=== PATIENT | female | born 1975 | race Caucasian/White ===

== ENCOUNTER 2016-09-13 05:36 | Inpatient (IN) | payer BC, OTHER ==
[~2016-09-13] VITALS: Ht 167.6 cm; Wt 115.5 kg
[2016-09-13] VITALS (10 sets, daily range): BP systolic 125–140; BP diastolic 68–87; PULSE 65–85; RESP 16–20; TEMP 97.5–98; O2SAT 94–100
[~2016-09-13 05:36] MED LIST: AMOX875T2 PO; ASCO500T9 PO; DOCO100C3 PO; ESCI10TA PO; LEVO150T68 PO; LORA10TA62 PO; VENL150T7 PO; [UNRECOGNIZED DRUG - CODE] PO
[2016-09-13] MEDS ORDERED: LR 1,000 ML IV PRN (05:42)
[2016-09-13] MEDS ORDERED: FAMOTIDINE 20mg IVPB 50 ML IV ONE (05:45)
[2016-09-13] MEDS ORDERED: NOZIN NASAL SWAB NS PRN (05:45)
[2016-09-13] MEDS ORDERED: LIDOCAINE 1% (10mg/ml) 2ml SDV ID PRN (05:45)
[2016-09-13] MEDS ORDERED: CITRIC ACID/SODIUM CITRATE 30 ML PO ONE (05:45)
[2016-09-13] MEDS ORDERED: CEFAZOLIN 2 GM in D5W 50ml 2 GM in D5W 50 ML IV ONE ×2 (06:00)
[2016-09-13] MEDS ORDERED: CEFAZOLIN 1 G in NORMAL SALINE 100 ML IV ONE (06:00)
--- NOTE | 2016-09-13 06:42 | ANESOB ---
Epidural/ Date/Time DATE: 09/13/16 TIME: 06:40 Preop Diagnosis Procedure: Plan: Spinal Height: 5 ' 6.00 " Weight: 115.450 kg BMI: kg/m2 Blood Pressure: 125/69 Heart Rate: 85 Respiratory Rate: 16 P:2 Medications & Allergies Inpatient Medications Current Medications Medications (Trade) Dose Ordered Sig/Keely Start Time Stop Time Status Last Admin Dose Admin Lactated Ringer's (Lactated Ringers) 1,000 ml @ 150 mls/hr [id number] PRN 09/13/16 05:42 Lidocaine HCl (Xylocaine 1%) 0.2 mg PRN PRN 09/13/16 05:45 Multi-Ingredient Antiseptic (Nozin Nasal Swab) 3 each PREOP PRN 09/13/16 05:45 Amoxicillin (Amoxicillin) 875 Mg Tablet, 1 TAB PO BID, (Reported) Last Taken: on 09/12/161999 Ascorbic Acid (Vitamin C) 500 Mg Tablet, 1 TAB PO DAILY, (Reported) Last Taken: on 09/12/16899 Docosahexanoic Acid (Dha) 100 Mg Capsule, 1 CAP PO DAILY, (Reported) Last Taken: on 09/12/16 09 Escitalopram Oxalate (Lexapro) 10 Mg Tablet, 1 TAB PO DAILY, (Reported) Last Taken: on 09/12/16899 Levothyroxine Sodium (Synthroid) 150 Mcg Tablet , 150 MCG PO DAILY, (Reported) Last Taken: on 09/12/16 09 Loratadine (Claritin) 10 Mg Tablet, 1 TAB PO DAILY, (Reported) Last Taken: on 09/12/16899 Vit/Fe Fumarate/Fa ( 1 Plus 1 Tablet) 1 Udtab Tablet, 1 UDTAB PO, (Reported) Last Taken: on 09/12/16 09 Venlafaxine Hcl (Venlafaxine Hcl Er) 150 Mg Tab.er.24, 150 MG PO DAILY, (Reported) Last Taken: on 09/12/16 0900 Coded Allergies: morphine (Verified Adverse Reaction, Severe, MIGRAIN, 09/13/16) Medical/Surgical History Anesthesia PMH: Reports: Headaches (Current migrain), Obesity, , Thyroid Disease, Denies: *Angina, *Diabetes, *Hypertension, *OK, Anesthesia Reactions, Arthritis, Asthma, Bld Transfusion Reaction, CHF, COPD, CVA/Stroke/ TIA, Cancer, Clotting Problems, Glaucoma, Malignant Hyperthermia, Renal Disease , Seizures Smoking Status: Never smoker Does patient use chewing tobac: No Second Hand Exposure: No Substance Use Type: does not use Alcohol Intake: none Anesthesia Adverse Reactions: FOUND none Family Hx of Anesthesia Advers: none Hx of Motion Sickness: No Pertinent Findings EKG Rhythm: Sinus Rhythm Physical Exam Respiratory: Lungs clear Cardiovascular: Regular rate, rhythm Airway Assessment Mallampati Score: II TMD: 3 Fingerbreadths Neck Extension: Good Overall Assessment: May Be Diff Intubation ASA: 2 Discussion Discussed risks/options/alternatives of anesthesia. Patient consents. Nursing pain assessment noted. Present for Discussion: Present: Family Member Attestation Statement Prior to the delivery of any anesthetic medication, I examined the patient, developed the plan, obtained the patient's consent and discussed the risk and benefits of the procedure with the patient/guardian. If the note happens to be signed after anesthesia start time, it is only due to providing efficient care of the patient and documenting at a time when the computer is available. KENDRICK ALAMO COMMUNICATIONS MANAGER Sep 13, 2016 06:42
[2016-09-13 07:01] LABS: BASOPHILS % (AUTO) 0.1 % (0-2); EOSINOPHILS # (AUTO) 0.1 T/MM3 (0-0.5); EOSINOPHILS % (AUTO) 0.5 % (0-4); HCT - HEMATOCRIT 38.1 % (36-46); HGB - HEMOGLOBIN 12.9 GM/DL (12-16); IMMATURE GRANULOCYTE # (AUTO) 0.03 T/MM3 (0.00-0.03); IMMATURE GRANULOCYTE % (AUTO) 0.3 % (0.0-0.5); LYMPHOCYTES # (AUTO) 1.8 T/MM3 (1-4.8); LYMPHOCYTES % (AUTO) 18.3 % (23-45); MEAN CORPUSCULAR HGB CONC(MCHC 33.9 GM/DL (31-37); MEAN CORPUSCULAR VOLUME 82.6 UM3 (80-100); MEAN PLATELET VOLUME 10.7 UM3 (9.4-12.4); MONOCYTES # (AUTO) 0.5 T/MM3 (0-0.8); NEUTROPHILS #(AUTO)-ABSOLUTE 7.6 T/MM3 (1.8-7.7); NEUTROPHILS % (AUTO) 75.8 % (33-66); RED BLOOD COUNT 4.61 M/MM3 (4.00-5.20); WBC - WHITE BLOOD COUNT 10.1 T/MM3 (4.5-11.0)
[2016-09-13] MEDS ORDERED: PHENYLEPHRINE 10mg/ml INJECTION ONE (07:01)
[2016-09-13] MEDS ORDERED: SALINE FLUSH 10ml SYRINGE ONE ×2 (07:02→07:48)
[2016-09-13] MEDS ORDERED: FENTANYL 100mcg/2ml INJECTION ONE (07:04)
[2016-09-13] MEDS ORDERED: NOZIN NASAL SWAB NS ONE (07:45)
[2016-09-13] MEDS ORDERED: NALBUPHINE 10mg/ml INJECTION IV PRN (08:00)
[2016-09-13] MEDS ORDERED: DiphenhydrAMINE 50 MG/ML INJECTION IV PRN (08:00)
[2016-09-13] MEDS ORDERED: METOCLOPRAMIDE 10mg/2ml INJECTION IV PRN (08:00)
[2016-09-13] MEDS ORDERED: NALOXONE 0.4mg/ml INJECTION IV PRN (08:00)
[2016-09-13] MEDS ORDERED: ONDANSETRON 4mg/2ml INJECTION IV PRN (08:00)
[2016-09-13] MEDS ORDERED: OXYTOCIN 30 UNIT in D5LR 500 ML IV SCH (08:27)
[2016-09-13] MEDS ORDERED: D5LR 1,000 ML IV SCH (08:27)
[2016-09-13] MEDS ORDERED: CALCIUM CARBONATE 500mg Chewable TAB PO PRN (08:30)
[2016-09-13] MEDS ORDERED: DiphenhydrAMINE 25 MG CAPSULE PO PRN (08:30)
[2016-09-13] MEDS ORDERED: MILK OF MAGNESIA 30 ML SUSP PO PRN (08:30)
[2016-09-13] MEDS ORDERED: ACETAMINOPHEN 500 MG TABLET PO PRN (08:30)
[2016-09-13] MEDS ORDERED: HYDROCORTISONE 2.5% CREAM 30 GM RECTALLY PRN (08:30)
[2016-09-13] MEDS: HYDROCODONE/APAP 5 mg/325 mg TABLET PO PRN ×2 (10:41→15:17)
[2016-09-13] MEDS: IBUPROFEN 800 MG TABLET PO PRN (10:42)
--- NOTE | 2016-09-13 13:18 | OPNOTEF ---
DATE OF OPERATION 09/13/2016 PREOPERATIVE DIAGNOSES 1. Third trimester with a previous myomectomy. 2. Undesired fertility. POSTOPERATIVE DIAGNOSES 1. Third trimester with a previous myomectomy, delivered. 2. Undesired fertility. PROCEDURE Primary low transverse section and bilateral tubal ligation. SURGEON Tania Haynes MD MOTEL FRONT DESK CLERK Kimberly Urias MD ANESTHESIA Spinal (Zak Montenegro, EXAMINER RATING CLERK) EBL 700 ml DESCRIPTION OF PROCEDURE Ms. Hickman was brought to the OR and given regional analgesia to good effect. She was then placed on the OR table in a comfortable supine position with left lateral displacement. A Jones catheter was placed to dependent drain. The abdomen was prepped and draped in the usual sterile fashion. A Pfannenstiel skin incision was made with a sharp knife. This was carried down to fascia. Fascia was incised transversely. Fascia was then tented up. This was bluntly and sharply dissected free of rectus muscles. Rectus muscles were bluntly divided. The peritoneum was tented up and sharply entered. This was then extended vertically and the bladder blade inserted. The bladder was noted to be well below our area of operation. A low transverse uterine incision was made with a sharp knife. There was clear amniotic fluid. Baby was delivered in a vertex presentation. There was a loose nuchal cord x 2 that was reduced. Baby was bulb suctioned on the abdomen, then cord was doubly clamped and cut. Baby was given to and her team for care. This is a liveborn female with Apgars of 7/7/8 and weighed 5 pounds, 0.5 ounces. The placenta was then expressed, intact. It had a normal configuration and normal-appearing three-vessel cord. The uterine cavity was swept clear of membranes and the uterus was exteriorized. We then reapproximated the myometrium with a running locking O Monocryl. There was an area of oozing in the midline, so we reinforced this with a running locking O Monocryl just for a section of about 3 cm in midline. At this point hemostasis was under good control and we turned our attention to the tubal ligation. The right fallopian tube was visualized to its fimbria. It was grasped at its midpoint. A large area then was ligated with a simple ligature of 2-0 chromic. The mesosalpinx was then pierced with a hemostat. Two simple ligatures of 2-0 silk were then brought through this and ligated on either side of the prior suture. The isolated section of tube was then excised. The stumps were very carefully observed for hemostasis and this was found to be under good control. We repeated the procedure on the left fallopian tube in the exact same fashion. Again, hemostasis was under good control. We reinspected our myometrial incision and it remained hemostatic. We then removed gross blood clots from the abdomen and returned the uterus, tubes and ovaries to the abdomen. We reinspected our incisions and all was hemostatic and we continued our closure. The peritoneum was then reapproximated with a running nonlocking 2-0 Vicryl. Fascia was reapproximated with a running nonlocking 0 Vicryl. Kristin's was reapproximated with a running nonlocking 2-0 chromic. Then skin edges were reapproximated with subcuticular style 3-0 undyed Vicryl. The wound was dressed with Steri-Strips and sterile dressing. Counts were correct postoperatively x 2. The urine remained clear and free flowing throughout the procedure and Ms. iHckman was then was then transferred to recovery in stable condition. NISHI
[2016-09-13] MEDS: VENLAFAXINE 75 MG TABLET PO SCH (14:00)
[2016-09-13] MEDS ORDERED: HYDROMORPHONE 2mg/ml INJECTION IV ONE (14:00)
[2016-09-13] MEDS: ESCITALOPRAM 10 MG TABLET PO SCH (14:00)
--- NOTE | 2016-09-13 14:25 | NUR ---
Pain management: PT unable to get relief from oral pain medication at this time. Dr. Haynes notified, one time dialudid 2mg ivp order given. IV dilaudid given. binder applied and lights turned off. pt trying to sleep; said that it has taken the edge off.
--- NOTE | 2016-09-13 15:39 | ANESPO ---
Post-Op Note Date 09/13/16 Time: 15:38 Status Pt Participated in Evaluation: Pt participated in person Vital Signs Date Time Temp Pulse Resp B/P Pulse Ox O2 Delivery O2 Flow Rate FiO2 09/13/16 15:15 20 94 09/13/16 12:49 98.0 67 140/68 Room Air Respiratory Function: Airway patent Cardiovascular Function: Regular pulse Telemetry Pattern: SR Mental Status: Alert/oriented Pain Level Intensity: 7 Hydration: IV infusing Complications during Recovery None apparent Follow-Up Instructions Instructions Per Surgeon KENDRICK ALAMO CRNA Sep 13, 2016 15:38
[2016-09-13 15:57] LABS: HCT - HEMATOCRIT 36.4 % (36-46); HGB - HEMOGLOBIN 12.3 GM/DL (12-16); MEAN CORPUSCULAR HGB CONC(MCHC 33.8 GM/DL (31-37); MEAN CORPUSCULAR VOLUME 82.7 UM3 (80-100); MEAN PLATELET VOLUME 10.2 UM3 (9.4-12.4); RED BLOOD COUNT 4.4 M/MM3 (4.00-5.20); WBC - WHITE BLOOD COUNT 11.4 T/MM3 (4.5-11.0)
--- NOTE | 2016-09-13 16:25 | NUR ---
UNCONTROLLED PAIN: Pt rating incision pain 4/10. Pt states she experiencing constant pressure in her incision area. RN updates Dr Urias on pt's pain. Dr Urias orders PO [place] 10 x1 q 6hrs.
[2016-09-13] MEDS ORDERED: HYDROMORPHONE PCA 30 MG/30 ML VIAL IV PRN (17:00)
--- NOTE | 2016-09-13 17:00 | PNPDOC ---
Progress Note Date 09/13/16 Pt reports pain not well controlled. Also has a cold sore coming up. Usually takes acyclovir. Baby in SCN. AVSS Stable Will add TIMBER CUTTER pain control overnight, po acyclovir. EVELYN BRANCH MD Sep 13, 2016 17:00
[2016-09-13] MEDS: LR 1,000 ML IV SCH (17:25)
[2016-09-13] MEDS: SIMETHICONE 80 MG CHEWABLE TABLET PO CHEW SCH ×2 (20:00→22:05)
[2016-09-14] VITALS (11 sets, daily range): BP systolic 130–143; BP diastolic 68–77; PULSE 64–75; RESP 12–18; TEMP 96.1–98.6; O2SAT 94–96
[2016-09-14] MEDS: ACYCLOVIR 200 MG CAPSULE PO SCH ×4 (00:38→20:39)
[2016-09-14] MEDS: VENLAFAXINE 75 MG TABLET PO SCH ×4 (00:41→16:59)
--- NOTE | 2016-09-14 02:07 | NUR ---
SHIFT SUMMARY: VSS, pt's pain uncontrolled with PO Motrin and [place] 5. New order placed for Dilaudid SIX SIGMA BLACK TRAINER, pt's pain controlled. Fundus firm at 1 below umbilicus, scant lochia noted. Incision dressing dry and intact. Urinary rock cath to dependent drain, urine output adequate. IV in pt's right hand infusing LR 100ml/hr and Dilaudid SIX SIGMA BLACK TRAINER, no complications. Thigh high SCD's pumping bilaterally. Abdm binder on for support. RN provided pericare x2. Pt consuming general diet w/o complications. PT up to w/c x1 to visit baby in SCN. Pt stands at bedside x1. Pt pumping breast, no colostrum collected on this shift. Pt states concerns multiple times that she is not collecting any colostrum. RN gives encouragement and instructs pt to continue to pump every 3hours. Shukri has left for the evening but very supportive when present. Pt currently sleeping.
--- NOTE | 2016-09-14 02:17 | NUR ---
Chart Check 24 hour chart check completed
--- NOTE | 2016-09-14 02:50 | NUR ---
REPORT FROM Fabian FIGUEROA RN BEDSIDE REPORT. PATIENT ORIENT X3. FALLS ASLEEP TALKING WITH HER. TEARY AFTER FUNDAL CHECK. ABDOMINAL PAIN @ LEVEL 5. REMINDED TO PUSH EMERGENCY MEDICAL DISPATCHER. EMERGENCY MEDICAL DISPATCHER SHIFT TOTALS CHECKED AND CLEARED WITH Fabian FIGUEROA RN. IV SITE WITHOUT S/S OF COMPLICATION. SCD'S ON. FUNDUS FIRM @ -1. SMALL AMOUNT RUBRA LOCHIA. NO PAD CHANGE AT THIS TIME. ABDOMINAL DRESSING DRY. ABDOMINAL BINDER ON. ANDERSON EMPTIED 500MLS YELLOW URINE. WILL GIVE IBUPROFEN FOR PAIN.
[2016-09-14] MEDS: IBUPROFEN 800 MG TABLET PO PRN ×3 (02:59→20:39)
--- NOTE | 2016-09-14 02:59 | NUR ---
PAIN MEDICATION IBUPROFEN 800MG PO FOR ABDOMINAL PAIN # LEVEL 5. BOAT TENDER IN USE.
[2016-09-14] MEDS: LR 1,000 ML IV SCH (03:00)
--- NOTE | 2016-09-14 03:45 | NUR ---
Helped mom set up pump yesterday afternoon approx 5 hours after delivery. She has been able to pump a few times throughout the evening. Was feeling discouraged that she wasn't getting much expressed. Reassured that this can be normal in the first couple of days and she should begin to see increasing amounts of colostrum over the next 48 hours. Mom reports that went very well with her 3 yo daughter. SHe was able to breastfeed up even during the beginning of this . Discussed importance of skin to skin as soon as is cleared by storage facility rental clerk. Discussed pumping and how to care for the pump and collect colostrum. Encouraged mom to call with any questions or concerns.
--- NOTE | 2016-09-14 07:05 | NUR ---
IV INFILTRATION HAND AND ARM SWOLLEN AND TIGHT. EXTENDS INTO ELBOW. PATIENT STATES SHE FEELS SOME NUMBNESS IN UPPER ARM. NOT TIGHT IN UPPER ARM. DC IV WITH 350MLS OF LR INFUSED FROM BAG. DC OLIVE GRADER PUMP 1.5mg INFUSED THIS SHIFT. WARM RICE BAG APPLIED TO ARM. Addendum: 09/14/16 at 0755 by LARRY CRAVEN RN IV INFILTRATION IS RIGHT WRIST. HAND AND FINGERS ALSO BLANCHED AND SWOLLEN TIGHT. PATIENT DENIES PAIN OR DISCOMFORT. ONLY OBSERVATION BY PATIENT IS THAT IT FEELS TIGHT AND SWOLLEN. SLIGHT RESTRICTS ROM WHEN OPEN AND CLOSING FINGERS.
[2016-09-14] MEDS: LEVOTHYROXINE 150 MCG TABLET PO SCH (07:12)
--- NOTE | 2016-09-14 07:40 | NUR ---
AMBULATION PATIENT UP TO BATHROOM. DC CATHETER WITHOUT COMPLICATION, TIP INTACT. DISCARD 275MLS STRAW COLORED URINE. PATIENT PERFORMS PARKER CARE WITH PAD CHANGE. BEDDING CHANGED. PATIENT AMBULATES TO NURSERY WITHOUT DIZZINESS. TOLERATES WELL. PLANS TO USE BREAST PUMP WHEN RETURNS.
[2016-09-14] MEDS: ESCITALOPRAM 10 MG TABLET PO SCH (08:38)
[2016-09-14] MEDS: DOCUSATE CALCIUM 240 MG CAPSULE PO SCH (08:49)
--- NOTE | 2016-09-14 11:14 | PNPDOC ---
Progress Note PPD1 Rubella: Immune GBS: Not Done/No Results Blood Type:O pos Subjective 09/14/16 Lochia: Minimal Pain: Controlled Voiding: Voiding Nausea and Vomiting: No Nausea/Vomiting Objective Vital Signs Date Time Temp Pulse Resp B/P Pulse Ox O2 Delivery O2 Flow Rate FiO2 09/14/16 07:05 15 09/14/16 04:45 94 09/14/16 03:41 96.1 09/14/16 02:51 66 136/75 Room Air Urine Output: Good General: Alert and Oriented Abdomen: Fundus Firm, Non-tender Incision: Clean/Dry/Intact, No Erythema Assessment SP, Primary C/S, Tubal Ligation Plan Routine Care, Continue PNV SAM MARC MD Sep 14, 2016 11:14
[2016-09-14] MEDS: SIMETHICONE 80 MG CHEWABLE TABLET PO CHEW SCH ×3 (12:09→21:56)
--- NOTE | 2016-09-14 14:41 | NUR ---
ASSESSMENT OF RIGHT ARM AND HAND. EDEMA IN ARM AND HAND HAS DECREASED. REMAINS UP TO ELBOW. NO REDNESS EXCEPT INSERTION POINT. REDNESS NOTED IN SHAPE OF IV DRESSING. PATIENT DENIES PAIN AND STATES THAT IT HAS GONE DOWN SOME. DECLINES WARM COMPRESS.
--- NOTE | 2016-09-14 14:44 | NUR ---
SHIFT SUMMARY VSS. PATIENT UP AND ABOUT VISITING NURSERY TWICE AND HOLDING BABY ON SECOND VISIT FOR EXTENDED TIME. FUNDUS REMAINS FIRM MIDLINE @ -1. SMALL AMOUNT RUBRA LOCHIA. HAS VOIDED 600MLS AFTER REMOVING NADERSON CATHETER. PAIN CONTROLLED WITH ORAL MEDICATIONS. HAS SHOWERED. EATING REGULAR DIET AND DRINKING FLUIDS WELL.
--- NOTE | 2016-09-14 20:40 | NUR ---
ELEVATED BP: Pt in bed watching [employer] game with . BP 143/71. Pt states she's tired and planning on taking a nap. RN will reevaluate BP in an hour.
[2016-09-15 01:50] VITALS: BP 129/69; PULSE 67; RESP 16; TEMP 97.6
--- NOTE | 2016-09-15 02:10 | NUR ---
Chart Check 24 hour chart check completed
--- NOTE | 2016-09-15 02:10 | NUR ---
SHIFT SUMMARY: VSS, pt's pain controlled with PO Motrin and [place] 10. Fundus firm at 1 below umbilicus, scant lochia noted. Incision MARY JO, steri strips intact, no s/s of infection. Abdm binder in use for abdm support and pt comfort. RN notes non-pitting edema in pt's right arm and hand, pt states the swelling has gone down. Pt up ad megan and has ambulated to [facility] multiple times this evening, voiding and performing own personal cares and consuming general diet. Pt pumping breast, pt states concerns that she is not producing colostrum. RN and family give encouragement. Shukri and family supportive.
[2016-09-15] MEDS: IBUPROFEN 800 MG TABLET PO PRN ×3 (04:51→22:05)
[2016-09-15] MEDS: LEVOTHYROXINE 150 MCG TABLET PO SCH ×2 (06:30→08:12)
--- NOTE | 2016-09-15 07:09 | NUR ---
MEDICATION ADMINISTRATION ADJUSTED. Pt requested not to be woken up at 0630 for Synthroid dose. If patient sleeping at 0630, requested to hold medication until 0800 when additional medication given.
[2016-09-15] MEDS: DOCUSATE CALCIUM 240 MG CAPSULE PO SCH (08:12)
[2016-09-15] MEDS: VENLAFAXINE 75 MG TABLET PO SCH ×3 (08:12→17:34)
[2016-09-15] MEDS: ESCITALOPRAM 10 MG TABLET PO SCH (08:13)
[2016-09-15] MEDS: ACYCLOVIR 200 MG CAPSULE PO SCH ×3 (08:13→21:00)
[2016-09-15 08:45] VITALS: BP 141/72; PULSE 69; RESP 14; TEMP 98.2; O2SAT 96
--- NOTE | 2016-09-15 12:30 | PNPDOC ---
Progress Note PPD2 Rubella: Immune GBS: Not Done/No Results Blood Type:O pos Subjective 09/15/16 Lochia: Minimal Pain: Controlled Voiding: Voiding Nausea and Vomiting: No Nausea/Vomiting Objective Vital Signs Date Time Temp Pulse Resp B/P Pulse Ox O2 Delivery O2 Flow Rate FiO2 09/15/16 08:45 98.2 69 14 141/72 96 Room Air General: Alert and Oriented Abdomen: Fundus Firm, Non-tender, Non-distended Incision: Clean/Dry/Intact, No Erythema Assessment SP, Primary C/S, Tubal Ligation Plan Routine Care, Continue PNV SAM MARC MD Sep 15, 2016 12:30
[2016-09-15] MEDS: SIMETHICONE 80 MG CHEWABLE TABLET PO CHEW SCH ×3 (13:17→22:05)
--- NOTE | 2016-09-15 14:23 | NUR ---
Shift Summary: Pt doing well. Pain controlled with Ibuprofen and [place] 10. VSS and fundus firm with scant lochia. Pt ambulating without difficulty and performing all ADLs unassisted. Pt visits with infant frequently in [facility] and appears to have great support system in place. Pumping without difficulty and expressing milk with each attempt.
[2016-09-15 16:10] VITALS: BP 140/77; PULSE 79; RESP 20; TEMP 98.6
[2016-09-15 22:10] VITALS: BP 137/78; PULSE 87; RESP 16; TEMP 98.3; O2SAT 97
--- NOTE | 2016-09-16 02:08 | NUR ---
SHIFT SUMMARY: VSS, pt's pain controlled with PO Motrin and [place] 10. Fundus firm at 2 below umbilicus, scant lochia reported. Abdm incision MARY JO, intact, and asymptomatic of infection. Abdm binder used for abdominal support and pt comfort. Pt up ad megan and has ambulated to [facility] multiple times this shift. Voiding and performing personal cares. Consuming general diet. Pumping breast and producing 5-7ml colostrum. and family supportive. Pt was tearful late this evening when updated on baby's episode of bradycardia. Pt currently sleeping.
--- NOTE | 2016-09-16 02:08 | NUR ---
Chart Check 24 hour chart check completed
[2016-09-16 06:30] VITALS: BP 144/71; PULSE 73; RESP 16; TEMP 98.1; O2SAT 98
[2016-09-16] MEDS ORDERED: IBUP-1547 PO (07:36)
[2016-09-16] MEDS ORDERED: DOCU240C40 PO (07:36)
[2016-09-16] MEDS ORDERED: HYDR-4078 PO (07:36)
[2016-09-16] MEDS: LEVOTHYROXINE 150 MCG TABLET PO SCH (08:30)
[2016-09-16] MEDS: VENLAFAXINE 75 MG TABLET PO SCH ×2 (08:35→13:11)
[2016-09-16] MEDS: ESCITALOPRAM 10 MG TABLET PO SCH (08:35)
[2016-09-16] MEDS: ACYCLOVIR 200 MG CAPSULE PO SCH ×2 (08:36→15:22)
[2016-09-16] MEDS: SIMETHICONE 80 MG CHEWABLE TABLET PO CHEW SCH ×2 (08:37→13:12)
[2016-09-16] MEDS: DOCUSATE CALCIUM 240 MG CAPSULE PO SCH (08:37)
[2016-09-16] MEDS: IBUPROFEN 800 MG TABLET PO PRN (08:38)
--- NOTE | 2016-09-16 10:32 | NUR ---
Dismissal Dismissal instructions reviewed. Verbalizes understanding. Discussed routine of "dismiss to board". Baby continues in special care nursery. As of now baby has been skin to skin with mother, but still on CPAP and so hasn't gone to breast. Wants to rest now and will wait for dismissal until brings home meds from pharmacy.
[2016-09-16 15:25] VITALS: BP 132/79; PULSE 69; RESP 18; TEMP 98.2; O2SAT 97
--- NOTE | 2016-09-16 15:26 | NUR ---
Dismissal here with medication. Ready for dismissal. Dismissed to board.
== END 2016-09-16 15:30 | disposition home or self-care (01) | DRG 765 ==
LOC: MC 05:36
PROVIDERS: ADMIT Obstetrics & Gynecology; ATTEND Obstetrics & Gynecology
PROC: 0UB70ZZ Excision of Bilateral Fallopian Tubes, Open Approach (ICD-10-PCS; 2016-09-13)
PROC: 10D00Z1 Extraction of Products of Conception, Low, Open Approach (ICD-10-PCS; principal; 2016-09-13 07:36)
DX: O34.29 Maternal care due to uterine scar from other previous surgery (principal); O99.354 Diseases of the nervous system complicating childbirth; N85.8 Other specified noninflammatory disorders of uterus; O09.523 Supervision of elderly multigravida, third trimester; O69.81X0 Labor and delivery complicated by cord around neck, without compression, not applicable or unspecified; Z30.2 Encounter for sterilization; O99.284 Endocrine, nutritional and metabolic diseases complicating childbirth; E89.0 Postprocedural hypothyroidism; E04.9 Nontoxic goiter, unspecified; G47.411 Narcolepsy with cataplexy; Z3A.36 36 weeks gestation of pregnancy; Z37.0 Single live birth
CPT/HCPCS: 36415; 85025; 85027; 86850; 86900; 86901